=== PATIENT | female | born 1995 | race Caucasian/White ===

== ENCOUNTER → 2019-10-08 | Outpatient (CLI) | payer OTHER ==
[~2019-10-08] MED LIST: Motrin400 MG PO; PRED15SY PO
[2019-10-08 16:48] LABS: Source, Urine Clean Catch
[2019-10-08 19:12] LABS: Bacteria Many /hpf; Red Blood Cells, Urine 0-2 /hpf (0-2); Squamous Epithelial Cells Mod /hpf (Few)
[2019-10-08 19:15] LABS: U Amphetamine Screen Not Detected; U Barbituate Screen Not Detected; U Benzodiazapine Screen Not Detected; U Buprenorphine Screen Not Detected; U Cannabinoids Screen Not Detected; U Cocaine Screen Not Detected; U Methadone Screen Not Detected; U Methamphetamine Screen Not Detected; U Opiates Screen Not Detected; U Oxycodone Screen Not Detected; U Phencyclidine Screen Not Detected; U Propoxyphene Screen Not Detected
== END | disposition home or self-care (01) ==
LOC: LAB SHORT 16:46 → LAB 16:46
PROVIDERS: Advanced Practice Midwife
DX: Z34.81 Encounter for supervision of other normal pregnancy, first trimester (principal)
CPT/HCPCS: 81015; 87077; 87086; 87186

== ENCOUNTER → 2019-10-14 | Outpatient (CLI) | payer OTHER ==
[2019-10-15 09:08] LABS: G. vaginalis (DNA Probe) Negative (NEGATIVE); T. vaginalis (DNA Probe) Negative (NEGATIVE)
[2019-10-15 09:09] LABS: Candida species (DNA Probe) Positive (NEGATIVE)
[2019-10-18 13:07] LABS: CHLAMYDIA TRACHOMATIS, NAA Negative (Negative); NEISSERIA GONORRHOEAE, NAA Negative (Negative)
== END | disposition home or self-care (01) ==
LOC: LAB SHORT 17:16 → LAB 17:16
PROVIDERS: Advanced Practice Midwife
DX: Z36.89 Encounter for other specified antenatal screening (principal); O23.591 Infection of other part of genital tract in pregnancy, first trimester; N76.0 Acute vaginitis
CPT/HCPCS: 87480; 87491; 87510; 87591; 87660; G0123

== ENCOUNTER → 2019-11-13 | Outpatient (CLI) | payer OTHER | END | disposition home or self-care (01) | LOC: LAB 09:45 → LAB SHORT 09:45 | DX: R30.9 Painful micturition, unspecified (principal) | CPT/HCPCS: 87077; 87086; 87186 ==

== ENCOUNTER 2020-05-02 15:32 | Inpatient (IN) | payer OTHER ==
[~2020-05-02] VITALS: Ht 165 cm; Wt 63.3 kg
[2020-05-02] MEDS ORDERED: PRENA1 TRUE CO1 EAC1 PO (20:18)
[2020-05-02 21:24] LABS: BASOPHILS ABSOLUTE AUTO 0.04 K/mm3 (0.00-0.23); BASOPHILS PERCENT AUTO 0 % (0-2); EOSINOPHILS ABSOLUTE AUTO 0.07 K/mm3 (0.00-0.68); EOSINOPHILS PERCENT AUTO 0 % (0-6); Hematocrit 35.5 % (33.0-51.0); Hemoglobin 11.5 g/dL (11.5-16.0); IMMATURE GRAN ABSOLUTE AUTO 0.14 K/mm3 (0.00-0.10); IMMATURE GRAN PERCENT AUTO 1 % (0-1); LYMPHOCYTES ABSOLUTE AUTO 2.27 K/mm3 (0.84-5.20); LYMPHOCYTES PERCENT AUTO 14 % (21-46); MONOCYTES ABSOLUTE AUTO 1.22 K/mm3 (0.16-1.47); MONOCYTES PERCENT AUTO 7 % (4-13); Mean Corpuscular HGB Conc 32.4 g/dL (31.5-36.5); Mean Corpuscular Volume 90 fL (80-100); Mean Platelet Volume 10.9 fL (9.1-12.4); NEUTROPHILS ABSOLUTE AUTO 12.66 K/mm3 (1.96-9.15); NEUTROPHILS PERCENT AUTO 77 % (41-73); Platelet Count 237 K/mm3 (150-400); RDW Coefficient Variation 13.7 % (11.7-14.2); RDW Standard Deviation 44.5 fL (35.1-46.3); Red Blood Cell Count 3.96 M/mm3 (3.80-5.20)
[2020-05-04 05:42] LABS: BASOPHILS ABSOLUTE AUTO 0.04 K/mm3 (0.00-0.23); BASOPHILS PERCENT AUTO 0 % (0-2); EOSINOPHILS ABSOLUTE AUTO 0.07 K/mm3 (0.00-0.68); EOSINOPHILS PERCENT AUTO 0 % (0-6); Hematocrit 31.4 % (33.0-51.0); Hemoglobin 9.9 g/dL (11.5-16.0); IMMATURE GRAN ABSOLUTE AUTO 0.15 K/mm3 (0.00-0.10); IMMATURE GRAN PERCENT AUTO 1 % (0-1); LYMPHOCYTES ABSOLUTE AUTO 2.82 K/mm3 (0.84-5.20); LYMPHOCYTES PERCENT AUTO 16 % (21-46); MONOCYTES ABSOLUTE AUTO 1.53 K/mm3 (0.16-1.47); MONOCYTES PERCENT AUTO 8 % (4-13); Mean Corpuscular HGB 28.9 pg (26.0-34.0); Mean Corpuscular HGB Conc 31.5 g/dL (31.5-36.5); Mean Corpuscular Volume 92 fL (80-100); Mean Platelet Volume 10.8 fL (9.1-12.4); NEUTROPHILS ABSOLUTE AUTO 13.62 K/mm3 (1.96-9.15); NEUTROPHILS PERCENT AUTO 75 % (41-73); Platelet Count 191 K/mm3 (150-400); RDW Coefficient Variation 13.6 % (11.7-14.2); RDW Standard Deviation 45.4 fL (35.1-46.3); Red Blood Cell Count 3.42 M/mm3 (3.80-5.20); White Blood Cell Count 18.23 K/mm3 (4.00-11.30)
--- NOTE | 2020-05-04 09:06 | NUR ---
RN ROUNDED TO HELP W/ . PT STATES IS GOING WELL. INSTRUCTED PT ON CORRECTLY POSITIONING NB TO FEED AND NIPPLE SHAPE AFTER FEEDS. PT DENIES ANY QUESTIONS OR CONCERNS.
--- NOTE | 2020-05-04 10:48 | NUR ---
PT DISCHARGED TO HOME. DISCHARGE INSTRUCTIONS GIVEN. NO QUESTIONS OR CONCERNS AT THIS TIME.
--- NOTE | 2020-05-07 10:10 | NUR ---
PPFU NO SHOW CALL PT. WAS A NO SHOE FOR 929. I CALLED HER AND SHE REPORTS FOB IS WORKING AND DOES NOT GET OFF UNTIL 163, I OFFERED TO STAY AND SEE HER WHEN HE GETS HOME OR I COULD ADD HER TO THE SCHEDULE TOMORRW. NV. STATES," I WILL TRY TO GET MO MOM TO GIVE ME A RIDE IN TODAY. PT. TO CALL AND LET ME KNOW ABOUT SCHEDULE.
== END 2020-05-04 10:50 | disposition home or self-care (01) | DRG 806 ==
LOC: OBS 15:32 → BC 15:32 → OBS 19:25 → BC 19:26
PROVIDERS: ADMIT Family Medicine
PROC: 10E0XZZ Delivery of Products of Conception, External Approach (ICD-10-PCS; principal; 2020-05-03)
PROC: 0UQG7ZZ Repair Vagina, Via Natural or Artificial Opening (ICD-10-PCS; 2020-05-03)
DX: O48.0 Post-term pregnancy (principal); O71.4 Obstetric high vaginal laceration alone; Z37.0 Single live birth; Z3A.41 41 weeks gestation of pregnancy
CPT/HCPCS: 36415; 59025; 85025; 86850; 86870; 86900; 86901; J1885; J2590; J3010; J7120

== ENCOUNTER → 2020-07-02 | Outpatient (CLI) | payer OTHER ==
[~2020-07-02] MED LIST changes: +PRENA1 TRUE CO1 EAC1 PO
[2020-07-02 17:46] LABS: Source, Urine Clean Catch
[2020-07-02 19:33] LABS: Bacteria Few /hpf; Squamous Epithelial Cells Few /hpf (Few)
== END | disposition home or self-care (01) ==
LOC: LAB 16:44 → LAB SHORT 16:44
PROVIDERS: Advanced Practice Midwife
DX: R30.9 Painful micturition, unspecified (principal)
CPT/HCPCS: 81015; 87077; 87086; 87186

== ENCOUNTER 2020-08-20 12:28 | Day surgery (SDC) | payer OTHER ==
[~2020-08-20] VITALS: Ht 165.1 cm; Wt 52.0 kg
--- NOTE | 2020-08-20 14:37 | NUR ---
08/20/20 1437 Betty Dhillon ABDOMEN PREPPED WITH DURA PREP BY ORSC.KNM SHAWN AREA PREPPED WITH BETADINE SOLUTION BY ORSC.[email or web address]
== END 2020-08-20 16:07 | disposition home or self-care (01) ==
LOC: ORSCSDS 12:28
PROVIDERS: Obstetrics & Gynecology
PROC: 0UB74ZZ Excision of Bilateral Fallopian Tubes, Percutaneous Endoscopic Approach (ICD-10-PCS; principal; 2020-08-20 14:00)
DX: Z30.2 Encounter for sterilization (principal)
CPT/HCPCS: 88302; J0171; J1100; J1885; J2250; J2405; J2704; J2710; J3010; J7120

== ENCOUNTER → 2020-10-28 | Outpatient (CLI) | payer OTHER | LOC: LAB 16:43 → LAB SHORT 16:43 | PROVIDERS: Family Medicine | DX: Z01.419 Encounter for gynecological examination (general) (routine) without abnormal findings (principal) | CPT/HCPCS: G0123 ==

== ENCOUNTER → 2021-05-19 | Outpatient (CLI) | payer OTHER ==
[2021-05-19 09:37] LABS: Source, Urine Clean Catch
[2021-05-19 13:13] LABS: Appearance, Urine Hazy (Clear); Bilirubin, Urine Neg (Neg); Blood, Urine Neg (Neg); Color, Urine Yellow (P-Yellow); Glucose Qualitative, Urine Neg (Neg); Ketones, Urine 1+ (Neg); Leukocyte Esterase, Urine 1+ (Neg); Nitrite, Urine Neg (Neg); Protein, Urine 2+ (Neg); Specific Gravity, Urine 1.015 (1.003-1.022); Urobilinogen, Urine NORM (Normal)
[2021-05-19 13:27] LABS: Amorphous Heavy (0-Heavy); Bacteria Few /hpf; Red Blood Cells, Urine 0-2 /hpf (0-2); Squamous Epithelial Cells Mod /hpf (Few)
== END | disposition home or self-care (01) ==
LOC: LAB 09:34 → LAB SHORT 09:34
PROVIDERS: Obstetrics & Gynecology
DX: R30.9 Painful micturition, unspecified (principal)
CPT/HCPCS: 81001; 87077; 87086; 87186

== ENCOUNTER 2021-09-15 17:05 | Inpatient (IN) | payer OTHER ==
[~2021-09-15] VITALS: Ht 165.1 cm; Wt 49.8 kg
[2021-09-15 17:37] LABS: BASOPHILS ABSOLUTE AUTO 0.03 K/mm3 (0.00-0.23); BASOPHILS PERCENT AUTO 0 % (0-2); EOSINOPHILS ABSOLUTE AUTO 0.04 K/mm3 (0.00-0.68); EOSINOPHILS PERCENT AUTO 0 % (0-6); Hematocrit 41.1 % (33.0-51.0); Hemoglobin 14.5 g/dL (11.5-16.0); IMMATURE GRAN ABSOLUTE AUTO 0.03 K/mm3 (0.00-0.10); IMMATURE GRAN PERCENT AUTO 0 % (0-1); LYMPHOCYTES ABSOLUTE AUTO 0.65 K/mm3 (0.84-5.20); LYMPHOCYTES PERCENT AUTO 5 % (21-46); MONOCYTES ABSOLUTE AUTO 0.75 K/mm3 (0.16-1.47); MONOCYTES PERCENT AUTO 6 % (4-13); Mean Corpuscular HGB 31.5 pg (26.0-34.0); Mean Corpuscular HGB Conc 35.3 g/dL (31.5-36.5); Mean Corpuscular Volume 89 fL (80-100); Mean Platelet Volume 9.5 fL (9.1-12.4); NEUTROPHILS ABSOLUTE AUTO 11.34 K/mm3 (1.96-9.15); NEUTROPHILS PERCENT AUTO 88 % (41-73); Platelet Count 202 K/mm3 (150-400); RDW Coefficient Variation 11.8 % (11.7-14.2); RDW Standard Deviation 38.3 fL (35.1-46.3); Red Blood Cell Count 4.61 M/mm3 (3.80-5.20); White Blood Cell Count 12.84 K/mm3 (4.00-11.30)
[2021-09-15 17:50] LABS: Anion Gap 9 mmol/L (6-16); Blood Urea Nitrogen 9 mg/dL (8-24); Bun/Creatinine Ratio 12.5 (12.0-20.0); CO2, Blood 23 mmol/L (21-32); Calcium, Blood 9.4 mg/dL (8.5-10.1); Chloride, Blood 104 mmol/L (98-108); Creatinine, Blood 0.72 mg/dL (0.40-1.00); Glomerular Filtration Rate >60 (60-); Glucose, Blood 78 mg/dL (70-99); Potassium, Blood 3.9 mmol/L (3.5-5.5); Sodium, Blood 136 mmol/L (136-145)
[2021-09-16 06:46] LABS: BASOPHILS ABSOLUTE AUTO 0.04 K/mm3 (0.00-0.23); BASOPHILS PERCENT AUTO 1 % (0-2); EOSINOPHILS ABSOLUTE AUTO 0.31 K/mm3 (0.00-0.68); EOSINOPHILS PERCENT AUTO 4 % (0-6); Hematocrit 42.3 % (33.0-51.0); Hemoglobin 14.1 g/dL (11.5-16.0); IMMATURE GRAN ABSOLUTE AUTO 0.02 K/mm3 (0.00-0.10); IMMATURE GRAN PERCENT AUTO 0 % (0-1); LYMPHOCYTES ABSOLUTE AUTO 1.31 K/mm3 (0.84-5.20); LYMPHOCYTES PERCENT AUTO 18 % (21-46); MONOCYTES ABSOLUTE AUTO 0.86 K/mm3 (0.16-1.47); MONOCYTES PERCENT AUTO 12 % (4-13); Mean Corpuscular HGB 30.8 pg (26.0-34.0); Mean Corpuscular HGB Conc 33.3 g/dL (31.5-36.5); Mean Corpuscular Volume 92 fL (80-100); NEUTROPHILS ABSOLUTE AUTO 4.81 K/mm3 (1.96-9.15); NEUTROPHILS PERCENT AUTO 66 % (41-73); Platelet Count 159 K/mm3 (150-400); RDW Coefficient Variation 12.7 % (11.7-14.2); RDW Standard Deviation 42.7 fL (35.1-46.3); Red Blood Cell Count 4.58 M/mm3 (3.80-5.20); White Blood Cell Count 7.35 K/mm3 (4.00-11.30)
[2021-09-16 07:37] LABS: Alanine Aminotransfer (ALT/SGP 16 U/L (12-78); Albumin, Blood 2.9 g/dL (3.4-5.0); Albumin/Globulin Ratio 0.9 (0.8-1.8); Alk Phos 59 U/L (50-136); Anion Gap 7 mmol/L (6-16); Aspartate Aminotrans (AST/SGOT 10 U/L (12-37); Bilirubin, Total 0.5 mg/dL (0.1-1.0); Blood Urea Nitrogen 7 mg/dL (8-24); Bun/Creatinine Ratio 13.2 (12.0-20.0); CO2, Blood 21 mmol/L (21-32); Calcium, Blood 8.9 mg/dL (8.5-10.1); Chloride, Blood 109 mmol/L (98-108); Creatinine, Blood 0.53 mg/dL (0.40-1.00); Globulin, Blood 3.4 g/dL (2.2-4.0); Glomerular Filtration Rate >60 (60-); Glucose, Blood 114 mg/dL (70-99); Potassium, Blood 4.1 mmol/L (3.5-5.5); Sodium, Blood 137 mmol/L (136-145); Total Protein, Blood 6.3 g/dL (6.4-8.2)
--- NOTE | 2021-09-16 16:33 | NUR ---
Initial Interview with [facility] Community [employer] Administrator 1. Who did you speak with? Spoke with patient 2. What is the patient's prior level of functions? Independent lives with her boyfriend and has a daughter (one year old). Patient is ambulatory able to perform housekeeping and cooking needs. Patient has no mobility or strength concerns. She is a healthy and active 26 year old. 3. What is the patient's current living situation? Resides with boyfriend and daughter 4. Is the patient and/or family able to provide transportation to and from doctor's appointments and diamond picker prescriptions? Yes, patient's boyfriend provides transportation as needed. 5. Does patient still drive? 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 6. POA/PCP/NOK: PCP-Dr Griffith/NOK: grandmother Shelby Anaya 7. Discharge goals: Home -Home: patient more than likely will discharge home-no barriers; patient has running water/utilities/safe home environment/support network -DME: None needed -Medication Management: self-management -Preferred Pharmacy: [facility] -Housekeeping need: patient and boyfriend take care of as needed -Cooking: patient and boyfriend take care of as needed 8. List barriers to discharge: None known at this time 9. Discharge Plan: Plan is to discharge home/TBD 10. PCP Follow up appointment: Will be scheduled within seven calendar days of discharge
--- NOTE | 2021-09-16 18:25 | NUR ---
PATIENT CURRENTLY SITTING UP IN BED WITH NO SIGNS OR SYMPTOMS ACUTE DISTRESS NOTED. CALL LIGHT AND WATER IN EASY REACH. NO COMPLAINTS OF SOB AT THIS TIME. COMPLAINS OF NOT BEING ABLE TO OPEN MOUTH WIDE EAT. MEDICATED FOR PAIN X 1 THIS SHIFT. CONTINUE IV ABX PER ORDERS. ENT NOTIFIED OF CONSULT. PATIENT TEARFUL AT TIMES, DOES NOT WANT TO BE HERE, EXPLAINED HER NEED TO BE HERE AND SHE UNDERSTANDS. WILL MONITOR.
--- NOTE | 2021-09-16 19:49 | NUR ---
PT WANTING TO GO OUTSIDE AND SMOKE. PT REMINDED OF THE NON SMOKING POLICY HERE AT [facility]. PT EDUCATED ON SMOKING CESSATION TO INCLUDE THE RISK OF WORSENING INFECTION, PAIN, AND DELAYED HEALING PROCESS. PT RECEPTIVE TO EDUCATION, HOWEVER BECAME TEARFUL. PT DENIES NEED FOR NICOTINE PATCH.
--- NOTE | 2021-09-17 08:01 | NUR ---
SHIFT SUMMARY: PT A&O X4. VS WNL. O2 STABLE ON RA. PT DENIES DIFFICULTY BREATHING. TOLERATING SOFT FOODS. SWELLING TO RIGHT SIDE OF FACE/JAW APPEARS TO BE IMPROVING. PT MEDICATED ONCE THIS SHIFT WITH 25MCG OF FENTANYL PER EMAR. PT REPORTS FEELING MUCH BETTER THIS MORNING. IV ABX INFUSING PER EMAR. PT INDEPENDENT IN ROOM
--- NOTE | 2021-09-17 16:18 | NUR ---
SHIFT SUMMARY PT IS ALERT AND ORIENTED. RIGHT SIDE OF FACE IS STILL SLIGHTLY SWOLLEN AND PINK. PT REPORTS R SIDE OF FACE IS PAINFUL AND MAKES IT DIFFICULT TO EAT. PAIN HAS BEEN MANAGED WITH NORCO. PT IS INDEPENDENT.
--- NOTE | 2021-09-18 07:09 | NUR ---
SHIFT SUMMARY S/P R TOOTH ABSCESS, A/O X4, VSS, TOLERATING PO, PAIN MANAGED PER EMAR, IV ABX AND STEROIDS IN USE, INDEPENDENT IN THE ROOM. NO ACUTE EVENTS THIS SHIFT. CALL LIGHT IN REACH, REPORT GIVEN TO DAY RN.
--- NOTE | 2021-09-18 19:07 | NUR ---
RECEIVED REPORT AND ASSUMED CARE OF PT. SHE IS LYING IN BED, A&OX4. REPORTS PAIN 06/11, ICE PACK PROVIDED. MEDICATED PER MAR BY DAY SHIFT. SHE DENIES ANY OTHER NEEDS, COMPLAINTS OR CONCERNS AT THIS TIME. ENRIQUE.
--- NOTE | 2021-09-19 04:56 | NUR ---
SHIFT SUMMARY: BRAYDON IS A&OX4, VSS, NO ACUTE EVENTS OVERNIGHT. SHE REPORTS ADEQUATE PAIN CONTROL WITH THE NORCO 7.5. SHE IS INDEPENENT IN THE ROOM, IV TO R AC PATENT, TOLERATING PO INTAKE WELL AND URINATING WITHOUT DIFFICULTY. SHE IS LYING QUIETLY IN BED WITH EVEN, UNLABORED RESPIRATIONS. WILL REPORT TO DAY SHIFT RN.
--- NOTE | 2021-09-19 17:57 | NUR ---
SHIFT SUMMARY PT HAS CONTINUED TO REPORT PAIN THIS SHIFT, MEDICATED PER EMAR. PT DOES REPORT THAT SHE CAN OPEN HER MOUTH AND EAT A "LITTLE BIT" EASIER. PT INDEPENDENT IN ROOM. PLAN IS TO CONTINUE IV ABX AND DC AFTER AM DOSE TOMORROW.
--- NOTE | 2021-09-20 04:42 | NUR ---
SHIFT SUMMARY: BRAYDON IS A&OX4, VSS, NO ACUTE EVENTS OVERNIGHT. SHE REPORTS ADEQUATE PAIN CONTROL WITH NORCO 7.5 MG. SHE IS INDEPENDENT IN THE ROOM, IV TO R AC PATENT. SHE STATES THAT SHE IS LOOKING FORWARD TO DISCHARGE LATER TODAY. SHE IS LYING IN BED WITH THE CALL LIGHT IN REACH. WILL REPORT TO DAY SHIFT RN.
--- NOTE | 2021-09-20 08:02 | NUR ---
C/O 910 PAIN ON R JAW, REPORTS SWELLING IS WORSE TODAY AFTER EATING A SANDWICH YESTERDAY, MEDICATED W/ NORCO, ICE TO R JAW, OFFERED FULL LIQUID TRAY OR SMOOTHIE FOR BREAFAST BUT PT REFUSED AT THIS TIME, CONT. TO MONITOR FOR ANY CHANGES.
--- NOTE | 2021-09-21 06:44 | NUR ---
PT VSS T/O NIGHT. PAIN MGD W/IBUPROFEN AND NORCO W/MINIMAL RELIEF. PT USING ICE PACKS FOR COMFORT. PT REP NO SIG CHANGES IN PAIN OR SWELLING. PT ANGEL CL PO, DID NOT WANT TO TRY THICKER LIQUIDS. IVF CONT PER ORDERS. PT INDEP IN ROOM.
--- NOTE | 2021-09-21 11:36 | NUR ---
Pt. was alert and sitting up in bad. Pt. demonstrated aprehension with my visit as she hoping I would be facilitating her discharge. Pt. was guarded and was relunctant to engage in dialogue. Pastoral prayer was offered and declined.
[2021-09-21] MEDS ORDERED: FAMO20 PO (12:33)
[2021-09-21] MEDS ORDERED: NICODERM CQ1 EA10 TOP (12:34)
[2021-09-21] MEDS ORDERED: IBUP800 PO (12:34)
[2021-09-21] MEDS ORDERED: AMOCLA875 PO (12:35)
--- NOTE | 2021-09-21 14:25 | NUR ---
Per Dr. Singh discharge appropriate on 09/21/21. Patient does not oppose. Patient scheduled for discharge to residence with daughter and her boyfriend. Transportation provided by family. Prior to discharge, contacted [facility] regarding dental appointment. [facility] is coordinating oral surgery appointment with [facility]. POC is Nguyen. DME: no new DME at this time. Appointment scheduled with PCP. No barriers to discharge at this time. Patient to follow up with [facility].
== END 2021-09-21 14:19 | disposition home or self-care (01) | DRG 872 ==
LOC: ER 17:05 → SURS 20:18 → ERHOLD 20:18 → SURS 09-16 09:10
PROVIDERS: Student in an Organized Health Care Education/Training Program; ADMIT Internal Medicine
DX: A41.9 Sepsis, unspecified organism (principal); K12.2 Cellulitis and abscess of mouth; M27.2 Inflammatory conditions of jaws; K04.7 Periapical abscess without sinus; F17.210 Nicotine dependence, cigarettes, uncomplicated; K14.0 Glossitis; Z91.018 Allergy to other foods; Z28.21 Immunization not carried out because of patient refusal
CPT/HCPCS: 36415; 70491; 80048; 80053; 85025; 96365; 96375; 96376; 99284-25; A9270; J0295; J1100; J1885; J2405; J3010; J7030; Q9967

== ENCOUNTER 2022-07-03 00:59 | Emergency (ER) | payer OTHER ==
[~2022-07-03] VITALS: Ht 162.6 cm; Wt 53.4 kg
[~2022-07-03 00:59] MED LIST changes: +AMOCLA875 PO; +FAMO20 PO; +IBUP800 PO; +NICODERM CQ1 EA10 TOP
[2022-07-03] MEDS ORDERED: Amoxicillin875 MG PO (01:24)
[2022-07-03] MEDS ORDERED: IBUP600 PO (01:24)
== END 2022-07-03 01:42 | disposition home or self-care (01) ==
LOC: ER 00:59
DX: K02.9 Dental caries, unspecified (principal); F17.200 Nicotine dependence, unspecified, uncomplicated; Z91.018 Allergy to other foods
CPT/HCPCS: 99282; A9270

== ENCOUNTER 2022-11-20 18:42 | Emergency (ER) | payer OTHER ==
[~2022-11-20] VITALS: Ht 165.1 cm; Wt 49.9 kg
[~2022-11-20 18:42] MED LIST changes: +Amoxicillin875 MG PO; +IBUP600 PO
== END 2022-11-20 20:51 | disposition home or self-care (01) ==
LOC: ER 18:42
DX: F41.0 Panic disorder [episodic paroxysmal anxiety] (principal); Z91.018 Allergy to other foods; F17.200 Nicotine dependence, unspecified, uncomplicated
CPT/HCPCS: 99283

== ENCOUNTER 2023-01-19 19:09 | Emergency (ER) | payer OTHER ==
[~2023-01-19] VITALS: Ht 165.1 cm; Wt 49.9 kg
[2023-01-19 19:31] VITALS: BP 118/84
== END 2023-01-19 19:37 | disposition home or self-care (01) ==
LOC: ER 19:09
DX: J02.9 Acute pharyngitis, unspecified (principal); Z91.048 Other nonmedicinal substance allergy status; F17.210 Nicotine dependence, cigarettes, uncomplicated
CPT/HCPCS: 99282

== ENCOUNTER 2023-01-22 12:32 | Emergency (ER) | payer OTHER ==
[~2023-01-22] VITALS: Ht 165.1 cm; Wt 49.9 kg
[2023-01-22 12:38] VITALS: BP 118/70
== END 2023-01-22 13:46 | disposition home or self-care (01) ==
LOC: ER 12:32
DX: J02.9 Acute pharyngitis, unspecified (principal); F41.9 Anxiety disorder, unspecified; Z91.018 Allergy to other foods; F17.200 Nicotine dependence, unspecified, uncomplicated
CPT/HCPCS: 99282

== ENCOUNTER → 2023-01-24 | Outpatient (CLI) | payer OTHER | END | disposition home or self-care (01) | LOC: LAB 13:28 → LAB SHORT 13:28 | DX: N39.0 Urinary tract infection, site not specified (principal) | CPT/HCPCS: 87077; 87086; 87186 ==

== ENCOUNTER 2023-08-18 22:00 | Emergency (ER) | payer OTHER ==
[~2023-08-18] VITALS: Ht 160 cm; Wt 54.4 kg
[2023-08-18 22:16] LABS: BASOPHILS ABSOLUTE AUTO 0.03 K/mm3 (0.00-0.23); BASOPHILS PERCENT AUTO 0 % (0-2); EOSINOPHILS ABSOLUTE AUTO 0.05 K/mm3 (0.00-0.68); EOSINOPHILS PERCENT AUTO 1 % (0-6); Hematocrit 39.8 % (33.0-51.0); Hemoglobin 14.1 g/dL (11.5-16.0); IMMATURE GRAN ABSOLUTE AUTO 0.05 K/mm3 (0.00-0.10); IMMATURE GRAN PERCENT AUTO 1 % (0-1); LYMPHOCYTES ABSOLUTE AUTO 2.58 K/mm3 (0.84-5.20); LYMPHOCYTES PERCENT AUTO 31 % (21-46); MONOCYTES ABSOLUTE AUTO 0.72 K/mm3 (0.16-1.47); MONOCYTES PERCENT AUTO 9 % (4-13); Mean Corpuscular HGB 31.1 pg (26.0-34.0); Mean Corpuscular HGB Conc 35.4 g/dL (31.5-36.5); Mean Corpuscular Volume 88 fL (80-100); Mean Platelet Volume 9.3 fL (9.1-12.4); NEUTROPHILS ABSOLUTE AUTO 4.95 K/mm3 (1.96-9.15); NEUTROPHILS PERCENT AUTO 59 % (41-73); Platelet Count 251 K/mm3 (150-400); RDW Standard Deviation 38.9 fL (35.1-46.3); Red Blood Cell Count 4.53 M/mm3 (3.80-5.20); White Blood Cell Count 8.38 K/mm3 (4.00-11.30)
[2023-08-18 22:34] LABS: International Normalized Ratio 0.97; Prothrombin Time Results 10.2 Sec (9.7-11.5)
[2023-08-18 22:37] LABS: Albumin, Blood 4.3 g/dL (3.4-5.0); Albumin/Globulin Ratio 1.3 (0.8-1.8); Bilirubin, Total 0.3 mg/dL (0.1-1.0); Bun/Creatinine Ratio 10.9 (12.0-20.0); Calcium, Blood 8.8 mg/dL (8.5-10.1); Creatinine, Blood 0.74 mg/dL (0.40-1.00); Globulin, Blood 3.4 g/dL (2.2-4.0); Potassium, Blood 3.1 mmol/L (3.5-5.5); Total Protein, Blood 7.7 g/dL (6.4-8.2)
[2023-08-18 23:13] LABS: Source, Urine Clean Catch
[2023-08-18 23:16] LABS: Bilirubin, Urine Neg (Neg); Blood, Urine Neg (Neg); Ketones, Urine Neg (Neg); Leukocyte Esterase, Urine Neg (Neg); Nitrite, Urine Neg (Neg); Urobilinogen, Urine NORM (Normal)
[2023-08-18 23:19] LABS: Glucose Qualitative, Urine Neg (Neg); Protein, Urine Neg (Neg); Specific Gravity, Urine 1.005 (1.003-1.022)
[2023-08-18 23:24] LABS: Appearance, Urine Clear (Clear); Color, Urine Pale Yellow (P-Yellow)
[2023-08-18 23:32] LABS: U Amphetamine Screen Not Detected; U Barbituate Screen Not Detected; U Benzodiazapine Screen Not Detected; U Buprenorphine Screen Not Detected; U Cannabinoids Screen Not Detected; U Cocaine Screen Not Detected; U Methadone Screen Not Detected; U Methamphetamine Screen Not Detected; U Opiates Screen Not Detected; U Oxycodone Screen Not Detected; U Phencyclidine Screen Not Detected
[2023-08-19 00:15] VITALS: BP 130/79
== END 2023-08-19 00:40 | disposition home or self-care (01) ==
LOC: ER 22:00
PROVIDERS: Emergency Medicine
DX: S01.112A Laceration without foreign body of left eyelid and periocular area, initial encounter (principal); F10.129 Alcohol abuse with intoxication, unspecified; V48.9XXA Unspecified car occupant injured in noncollision transport accident in traffic accident, initial encounter; Z91.018 Allergy to other foods
CPT/HCPCS: 12013; 70450; 71260; 72125; 74177; 80053; 81003; 84703; 85025; 85610; 86850; 86870; 86900; 86901; 99284-25; Q9967

== ENCOUNTER 2024-12-01 14:50 | Emergency (ER) | payer OTHER ==
[~2024-12-01] VITALS: Ht 162.6 cm; Wt 57.1 kg
[2024-12-01 14:53] VITALS: BP 124/94
[2024-12-01] MEDS ORDERED: PRED10 PO (14:57)
== END 2024-12-01 15:03 | disposition home or self-care (01) ==
LOC: ER 14:50
DX: L25.9 Unspecified contact dermatitis, unspecified cause (principal); F17.200 Nicotine dependence, unspecified, uncomplicated; Z91.018 Allergy to other foods
CPT/HCPCS: 99282

== ENCOUNTER 2025-06-16 11:28 | Day surgery (SDC) | payer OTHER ==
[~2025-06-16] VITALS: Ht 165.1 cm; Wt 59.3 kg
[~2025-06-16 11:28] MED LIST changes: +Bupivacaine 0.5% W/EPI 1:200000 SDV 30 ML Vial ONE; +PRED10 PO
[2025-06-16] MEDS ORDERED: Dexmedetomidine HCL 200 MCG / 2 ML IV ONE (11:40)
[2025-06-16] MEDS ORDERED: IBUP200 PO (11:48)
--- NOTE | 2025-06-16 12:01 | NUR ---
06/16/25 1201 Kaylah Marrufo REPORT GIVEN TO KIANA SAENZ.
[2025-06-16] MEDS ORDERED: CeFAZolin Sodium 2,000 MG VIAL ONE (12:11)
[2025-06-16] MEDS ORDERED: Midazolam HCl 1MG / ML 2ML Vial ONE (12:19)
[2025-06-16] MEDS ORDERED: Dexamethasone Sod Phos 10 MG/ML 1ML VIAL ONE (12:19)
[2025-06-16] MEDS ORDERED: FentaNYL Citrate 50 MCG/ML 2 ML Injection ONE ×2 (12:19→14:02)
[2025-06-16] MEDS ORDERED: Ondansetron HCl 2 MG / ML 2ML Vial ONE (14:20)
[2025-06-16 15:32] VITALS: BP 99/65
== END 2025-06-16 15:25 | disposition home or self-care (01) ==
LOC: ORSCSDS 11:28
PROVIDERS: Podiatrist Foot & Ankle Surgery
PROC: 0SGL04Z Fusion of Left Tarsometatarsal Joint with Internal Fixation Device, Open Approach (ICD-10-PCS; principal; 2025-06-16 12:45)
PROC: 0QSM04Z Reposition Left Tarsal with Internal Fixation Device, Open Approach (ICD-10-PCS; principal; 2025-06-16 12:45)
DX: S93.325A Dislocation of tarsometatarsal joint of left foot, initial encounter (principal); W50.0XXA Accidental hit or strike by another person, initial encounter; F17.210 Nicotine dependence, cigarettes, uncomplicated
CPT/HCPCS: A6253; C1713; C1769; J0690; J1100; J2250; J2405; J2704; J3010; J7120